=== PATIENT | female | born 1990 | race Caucasian/White ===

== ENCOUNTER 2016-12-21 12:36 | Emergency (ER) | payer OTHER | END 2016-12-21 13:02 | disposition left against medical advice (07) | LOC: MW.ED 12:36 ==

== ENCOUNTER 2017-05-09 14:11 | Emergency (ER) | payer BC, OTHER ==
--- NOTE | 2017-05-09 18:40 | EDM.PDOC ---
ED HPI GENERAL MEDICAL PROBLEM - General Chief Complaint: Lower Extremity Injury/Pain Stated Complaint: PAIN LT KNEE Time Seen by Provider: 05/09/17 18:35 Source of Information: Reports: Patient History Limitations: Reports: No Limitations - History of Present Illness INITIAL COMMENTS - FREE TEXT/NARRATIVE: HISTORY AND PHYSICAL: History of present illness: Patient is a 27-year-old female who presents to the emergency room today with complaints of left knee pain. States she was climbing down a ladder and her foot got caught between 2 rungs and twisted. This did not result in a fall, she did not hit her head. Since that time she has increased pain with weightbearing to the left knee. Denies any numbness or tingling to the affected extremity. Has no previous injury or surgeries to the affected extremity. Patient is currently using crutches from a friend, for comfort. Review of systems: As per history of present illness and below otherwise all systems reviewed and negative. Past medical history: As per history of present illness and as reviewed below otherwise noncontributory. Surgical history: As per history of present illness and as reviewed below otherwise noncontributory. Social history: No reported history of drug or alcohol abuse. Family history: As per history of present illness and as reviewed below otherwise noncontributory. Physical exam: HEENT: Atraumatic, normocephalic, pupils reactive, negative for conjunctival pallor or scleral icterus, mucous membranes moist, throat clear, neck supple, nontender, trachea midline. Lungs: Clear to auscultation, breath sounds equal bilaterally, chest nontender. Heart: S1S2, regular, negative for clicks, rubs, or JVD. Abdomen: Soft, nondistended, nontender. Negative for masses. Negative for costovertebral tenderness. Pelvis: Stable nontender. Genitourinary: Deferred. Rectal: Deferred. Extremities: describes sharp pain behind the left patella. There is no tenderness with palpation. Strong pedal pulses bilaterally. No foot drop. No knee instability. negative for cords or calf pain. Neurovascular unremarkable. skin: Intact, warm, dry. No overt lesions or rashes. Neuro: Awake, alert, oriented. Cranial nerves II through XII unremarkable. Cerebellum unremarkable. Motor and sensory unremarkable throughout. Exam nonfocal. Diagnostics: x-ray, lab Therapeutics: crutches, knee immobilizer Impression: knee effusion, left Plan: 1. Please take the Cataflam 1 tablet up to 3 times daily as needed for pain. This medication is an anti-inflammatory, so please do not take any additional ibuprofen or Aleve with this medication. You may take the Tramadol every 4 to 6 hours as needed for moderate to severe pain, I would like you to use this medication during the evening as needed. This medication may cause drowsiness so please be careful when using. Rest, ice, elevate the extremity several times throughout the day. 2. Use the crutches and knee immobilizer as discussed. 3. Please follow-up with the orthopedic provider as we discussed. Return to the ED as needed as discussed. Definitive disposition and diagnosis as appropriate pending reevaluation and review of above. Onset: Other (Yesterday) Duration: Day(s): Location: Reports: Lower Extremity, Left Left Knee Pain Score (Numeric/FACES): 9 - Related Data Allergies Allergy/AdvReac Type Severity Reaction Status Date / Time amoxicillin Allergy Anaphylactic Verified 05/09/17 16:42 Shock Dairy Products Allergy Anaphylactic Verified 05/09/17 16:42 Shock morphine Allergy Anaphylactic Verified 05/09/17 16:42 Shock Sulfa (Sulfonamide Allergy Anaphylactic Verified 05/09/17 16:43 Antibiotics) Shock Home Meds: Home Meds DULoxetine HCl [Duloxetine HCl] 90 mg PO DAILY 05/09/17 [History] Sertraline [Zoloft] 75 mg PO DAILY 05/09/17 [History] Past Medical History - Past Health History Medical/Surgical History: Denies Medical/Surgical History Respiratory History: Reports: Asthma Gastrointestinal History: Reports: Other (See Below) Other Gastrointestinal History: ulcers Musculoskeletal History: Reports: Other (See Below) Other Musculoskeletal History: L knee meniscus tear. R knee bone & tissue deterioration Psychiatric History: Reports: Depression Social & Family History - Family History Family Medical History: Noncontributory - Tobacco Use Smoking Status *Q: Current Every Day Smoker Years of Tobacco use: 5 Packs/Tins Daily: 1 - Recreational Drug Use Recreational Drug Use: No Review of Systems - Review of Systems Review Of Systems: ROS reveals no pertinent complaints other than HPI. ED EXAM, GENERAL - Physical Exam Exam: See Below (see dictation) Course - Vital Signs Last Recorded V/S: Last Vital Signs Temp 36.9 C 05/09/17 16:45 Pulse 90 05/09/17 16:45 Resp 18 05/09/17 16:45 BP 111/66 05/09/17 16:45 Pulse Ox 96 05/09/17 16:45 - Orders/Labs/Meds Orders: Active Orders 24 hr Category Date Time Status Knee 3V Lt [CR] Stat Exams 05/09/17 16:50 Taken DME for Discharge [COMM] Stat Oth 05/09/17 18:40 Ordered Labs: Laboratory Tests 05/09/17 Range/Units 16:50 Urine HCG, Qual NEGATIVE (NEGATIVE) Departure - Departure Time of Disposition: 18:39 Disposition: Home, Self-Care 01 Condition: Good Clinical Impression: Knee effusion, left - Discharge Information Referrals: PCP,None [Primary Care Provider] - Forms: ED Department Discharge Additional Instructions: My general discharge The following information is given to patients seen in the emergency department who are being discharged to home. This information is to outline your options for follow-up care. We provide all patients seen in our emergency department with a follow-up referral. The need for follow-up, as well as the timing and circumstances, are variable depending upon the specifics of your emergency department visit. If you don't have a primary care physician on staff, we will provide you with a referral. We always advise you to contact your personal physician following an emergency department visit to inform them of the circumstance of the visit and for follow-up with them and/or the need for any referrals to a consulting specialist. The emergency department will also refer you to a specialist when appropriate. This referral assures that you have the opportunity for follow-up care with a specialist. All of these measure are taken in an effort to provide you with optimal care, which includes your follow-up. Under all circumstances we always encourage you to contact your private physician who remains a resource for coordinating your care. When calling for follow-up care, please make the office aware that this follow-up is from your recent emergency room visit. If for any reason you are refused follow-up, please contact the [facility] Emergency Department at and asked to speak to the emergency department charge nurse. [facility] Professional Building [address] [place] [address], [address] [place] [address] 1. Please take the Cataflam 1 tablet up to 3 times daily as needed for pain. This medication is an anti-inflammatory, so please do not take any additional ibuprofen or Aleve with this medication. You may take the Tramadol every 4 to 6 hours as needed for moderate to severe pain, I would like you to use this medication during the evening as needed. This medication may cause drowsiness so please be careful when using. Rest, ice, elevate the extremity several times throughout the day. 2. Use the crutches and knee immobilizer as discussed. 3. Please follow-up with the orthopedic provider as we discussed. Return to the ED as needed as discussed. - My Orders Last 24 Hours: My Active Orders 05/09/17 18:40 DME for Discharge [COMM] Stat - Assessment/Plan Last 24 Hours: My Active Orders 05/09/17 18:40 DME for Discharge [COMM] Stat
--- NOTE | 2017-05-10 10:58 | CR ---
EXAM DATE: 05/09/17 PATIENT'S AGE: 27 Patient: MONALISA CHILD Facility: [place], [place] Site . Site : 1990 Study: XRay Knee [id number] 5:42:58 PM Ordering Physician: Doctor Blank Final Report: Indication: Fall Technique: Three views of the left knee Comparison: None available Findings: Bones: Alignment is normal. No fractures or bone lesions. Joint spaces: Preserved. Prominence of the patellofemoral compartment on the sunrise view. A small to moderate suprapatellar effusion. Soft tissues: Unremarkable. Impression: No acute fracture or dislocation. A suprapatellar effusion. Dictated by Omega Guerrero MD @ 05/09/2017 6:17:21 PM Dictated by: Omega Guerrero MD @ 05/09/2017 18:17:27 (Electronic Signature) Report Signed by Proxy. [email or web address]
== END 2017-05-09 19:15 | disposition home or self-care (01) ==
LOC: MW.ED 14:11
DX: M25.462 Effusion, left knee (principal); J45.909 Unspecified asthma, uncomplicated; F32.9 Major depressive disorder, single episode, unspecified; F17.210 Nicotine dependence, cigarettes, uncomplicated; Z79.899 Other long term (current) drug therapy; Z88.5 Allergy status to narcotic agent; Z88.2 Allergy status to sulfonamides; Z88.1 Allergy status to other antibiotic agents; Z91.011 Allergy to milk products
CPT/HCPCS: 73562-26-LT; 73562-LT; 81025; 99283; 99284

== ENCOUNTER 2017-09-05 02:45 | Emergency (ER) | payer OTHER, BC ==
[2017-09-05] MEDS ORDERED: LORazepam 2 MG/ML MDV IVPUSH ONE (02:50)
[2017-09-05] MEDS ORDERED: Ketorolac 30 MG/ML SDV IVPUSH ONE (02:50)
[2017-09-05] MEDS ORDERED: Sodium Chloride 0.9% 1,000 ML IV ONE (02:50)
--- NOTE | 2017-09-05 02:52 | EDM.PDOC ---
ED HPI GENERAL MEDICAL PROBLEM - General Stated Complaint: ABDOMINAL PAIN Time Seen by Provider: 09/05/17 02:52 Source of Information: Reports: Patient - History of Present Illness INITIAL COMMENTS - FREE TEXT/NARRATIVE: HISTORY AND PHYSICAL: History of present illness: [Patient presents via EMS She was nearly asleep tonight she began to feel her heart racing which prompted her to get up she then vomited shortly after 1, she had complained of some abdominal pain to EMS stating she is allergic to morphine and she requested Dilaudid fairly aggressively. In speaking here in the emergency room she has not mentioned abdominal pain nor has she vomited. EMS did provide 8 mg Zofran IV . On arrival she does not appear to be in any acute distress she is able to speak clearly and provide the history she is nontender on abdominal exam No apparent fever nausea vomiting at current. no chills sweats chest pain shortness breath headache dizziness palpitation no bowel or urine symptoms Patient does have some tenderness in the right upper quadrant, she is noted to have been or area was prior to going to bed for supper which may be a mild biliary colic Review of systems: As per history of present illness and below otherwise all systems reviewed and negative. Past medical history: As per history of present illness and as reviewed below otherwise noncontributory. Surgical history: As per history of present illness and as reviewed below otherwise noncontributory. Social history: No reported history of drug or alcohol abuse. Family history: As per history of present illness and as reviewed below otherwise noncontributory. Physical exam: HEENT: Atraumatic, normocephalic, pupils reactive, negative for conjunctival pallor or scleral icterus, mucous membranes moist, throat clear, neck supple, nontender, trachea midline. Lungs: Clear to auscultation, breath sounds equal bilaterally, chest nontender. Heart: S1S2, regular, negative for clicks, rubs, or JVD. Abdomen: Soft, nondistended, nontender. Negative for masses or hepatosplenomegaly. Negative for costovertebral tenderness. Pelvis: Stable nontender. Genitourinary: Deferred. Rectal: Deferred. Extremities: Atraumatic, negative for cords or calf pain. Neurovascular unremarkable. Neuro: Awake, alert, oriented. Cranial nerves II through XII unremarkable. Cerebellum unremarkable. Motor and sensory unremarkable throughout. Exam nonfocal. Diagnostics: [CBC CMP UA hCG amylase lipase drug screen cardiac enzymes Ultrasound right upper quadrant ] Therapeutics: [1 L normal saline bolus Zofran 8 mg IV provided via EMS Ativan 1 mg IV Toradol 30 mg IV ] Impression: [Anxiety about health Abdominal pain Nausea vomiting prior to EMS arrival] Definitive disposition and diagnosis as appropriate pending reevaluation and review of above. abdominal Pain Score (Numeric/FACES): 10 - Related Data Allergies Allergy/AdvReac Type Severity Reaction Status Date / Time amoxicillin Allergy Anaphylactic Verified 09/05/17 02:59 Shock Dairy Products Allergy Anaphylactic Verified 09/05/17 02:59 Shock morphine Allergy Anaphylactic Verified 09/05/17 02:59 Shock Sulfa (Sulfonamide Allergy Anaphylactic Verified 09/05/17 02:59 Antibiotics) Shock Home Meds: Home Meds DULoxetine HCl [Duloxetine HCl] 90 mg PO DAILY 05/09/17 [History] Sertraline [Zoloft] 0 mg PO DAILY 05/09/17 [History] Prazosin HCl [Prazosin] 6 mg PO BEDTIME 09/05/17 [History] traMADol HCl [Ultram] 50 mg PO ASDIRECTED PRN 09/05/17 [History] Past Medical History - Past Health History Medical/Surgical History: Denies Medical/Surgical History Respiratory History: Reports: Asthma Gastrointestinal History: Reports: Other (See Below) Other Gastrointestinal History: ulcers Musculoskeletal History: Reports: Other (See Below) Other Musculoskeletal History: L knee meniscus tear. R knee bone & tissue deterioration Psychiatric History: Reports: Depression Social & Family History - Family History Family Medical History: Noncontributory - Tobacco Use Smoking Status *Q: Current Every Day Smoker Years of Tobacco use: 5 Packs/Tins Daily: 1 - Recreational Drug Use Recreational Drug Use: No ED ROS GENERAL - Review of Systems Review Of Systems: ROS reveals no pertinent complaints other than HPI. ED EXAM, GENERAL - Physical Exam Exam: See Below Course - Vital Signs Last Recorded V/S: Last Vital Signs Temp 98.4 F 09/05/17 04:50 Pulse 88 09/05/17 04:50 Resp 18 09/05/17 04:50 BP 98/56 L 09/05/17 04:50 Pulse Ox 97 09/05/17 04:50 - Orders/Labs/Meds Orders: Active Orders 24 hr Category Date Time Status EKG Documentation Completion [RC] STAT Care 09/05/17 02:59 Active Abdomen Ltd [US] Stat Exams 09/05/17 03:54 Taken Labs: Laboratory Tests 09/05/17 09/05/17 09/05/17 Range/Units 03:10 03:10 03:10 WBC 10.79 (4.0-11.0) K/uL RBC 4.18 L (4.30-5.90) M/uL Hgb 13.2 (12.0-16.0) g/dL Hct 38.1 (36.0-46.0) % MCV 91.1 (80.0-98.0) fL MCH 31.6 (27.0-32.0) pg MCHC 34.6 (31.0-37.0) g/dL RDW Std Deviation 39.2 (28.0-62.0) fl RDW Coeff of Ike 12 (11.0-15.0) % Plt Count 223 (150-400) K/uL MPV 9.60 (7.40-12.00) fL Neut % (Auto) 68.5 (48.0-80.0) % Lymph % (Auto) 23.0 (16.0-40.0) % [place] % (Auto) 6.3 (0.0-15.0) % Eos % (Auto) 1.9 (0.0-7.0) % Baso % (Auto) 0.3 (0.0-1.5) % Neut # (Auto) 7.4 H (1.4-5.7) K/uL Lymph # (Auto) 2.5 H (0.6-2.4) K/uL [place] # (Auto) 0.7 (0.0-0.8) K/uL Eos # (Auto) 0.2 (0.0-0.7) K/uL Baso # (Auto) 0.0 (0.0-0.1) K/uL Nucleated RBC % 0.0 /100WBC Nucleated RBCs # 0 K/uL Sodium 138 (136-146) mmol/L Potassium 3.9 (3.5-5.1) mmol/L Chloride 104 (98-110) mmol/L Carbon Dioxide 23 (21-31) mmol/L BUN 11 (6.0-23.0) mg/dL Creatinine 0.8 (0.6-1.5) mg/dL Est Cr Clr Drug Dosing TNP Estimated GFR (MDRD) > 60.0 ml/min Glucose 158 H (60-110) mg/dL Calcium 9.0 (8.8-10.8) mg/dL Total Bilirubin 0.4 (0.1-1.5) mg/dL AST 17 (5-40) IU/L ALT 13 (8-54) IU/L Alkaline Phosphatase 37 L (40-150) Creatine Kinase (9-236) IU/L CK-MB (CK-2) (0-6.6) ng/ml Troponin I < 0.10 (0.0-0.29) NG/ML C-Reactive Protein 0.13 (0.0-0.5) mg/dL Total Protein 6.7 (6.0-8.0) g/dL Albumin 3.9 (3.5-5.0) g/dL Globulin 2.8 (2.0-3.5) g/dL Albumin/Globulin Ratio 1.4 (1.3-2.8) Amylase 51 (10-90) U/L Lipase 12 (7-80) U/L Urine Color Urine Appearance Urine pH (5.0-8.0) Ur Specific [place] (1.001-1.035) Urine Protein (NEGATIVE) mg/dL Urine Glucose (UA) (NEGATIVE) mg/dL Urine Ketones (NEGATIVE) mg/dL Urine Occult Blood (NEGATIVE) Urine Nitrite (NEGATIVE) Urine Bilirubin (NEGATIVE) Urine Urobilinogen (<2.0) EU/dL Ur Leukocyte Esterase (NEGATIVE) Urine RBC (0-2/HPF) Urine WBC (0-5/HPF) Ur Epithelial Cells (NONE-FEW) Urine Bacteria (NEGATIVE) Urine HCG, Qual (NEGATIVE) Urine Opiates Screen (NEGATIVE) Ur Oxycodone Screen (NEGATIVE) Urine Methadone Screen (NEGATIVE) Ur Barbiturates Screen (NEGATIVE) Ur Phencyclidine Scrn (NEGATIVE) Ur Amphetamine Screen (NEGATIVE) U Methamphetamines Scrn (NEGATIVE) U Benzodiazepines Scrn (NEGATIVE) U Cocaine Metab Screen (NEGATIVE) U Marijuana (THC) Screen (NEGATIVE) 09/05/17 09/05/17 09/05/17 Range/Units 03:10 03:30 03:30 WBC (4.0-11.0) K/uL RBC (4.30-5.90) M/uL Hgb (12.0-16.0) g/dL Hct (36.0-46.0) % MCV (80.0-98.0) fL MCH (27.0-32.0) pg MCHC (31.0-37.0) g/dL RDW Std Deviation (28.0-62.0) fl RDW Coeff of Ike (11.0-15.0) % Plt Count (150-400) K/uL MPV (7.40-12.00) fL Neut % (Auto) (48.0-80.0) % Lymph % (Auto) (16.0-40.0) % [place] % (Auto) (0.0-15.0) % Eos % (Auto) (0.0-7.0) % Baso % (Auto) (0.0-1.5) % Neut # (Auto) (1.4-5.7) K/uL Lymph # (Auto) (0.6-2.4) K/uL [place] # (Auto) (0.0-0.8) K/uL Eos # (Auto) (0.0-0.7) K/uL Baso # (Auto) (0.0-0.1) K/uL Nucleated RBC % /100WBC Nucleated RBCs # K/uL Sodium (136-146) mmol/L Potassium (3.5-5.1) mmol/L Chloride (98-110) mmol/L Carbon Dioxide (21-31) mmol/L BUN (6.0-23.0) mg/dL Creatinine (0.6-1.5) mg/dL Est Cr Clr Drug Dosing Estimated GFR (MDRD) ml/min Glucose (60-110) mg/dL Calcium (8.8-10.8) mg/dL Total Bilirubin (0.1-1.5) mg/dL AST (5-40) IU/L ALT (8-54) IU/L Alkaline Phosphatase (40-150) Creatine Kinase 51 (9-236) IU/L CK-MB (CK-2) 1.0 (0-6.6) ng/ml Troponin I (0.0-0.29) NG/ML C-Reactive Protein (0.0-0.5) mg/dL Total Protein (6.0-8.0) g/dL Albumin (3.5-5.0) g/dL Globulin (2.0-3.5) g/dL Albumin/Globulin Ratio (1.3-2.8) Amylase (10-90) U/L Lipase (7-80) U/L Urine Color Urine Appearance Urine pH (5.0-8.0) Ur Specific [place] (1.001-1.035) Urine Protein (NEGATIVE) mg/dL Urine Glucose (UA) (NEGATIVE) mg/dL Urine Ketones (NEGATIVE) mg/dL Urine Occult Blood (NEGATIVE) Urine Nitrite (NEGATIVE) Urine Bilirubin (NEGATIVE) Urine Urobilinogen (<2.0) EU/dL Ur Leukocyte Esterase (NEGATIVE) Urine RBC (0-2/HPF) Urine WBC (0-5/HPF) Ur Epithelial Cells (NONE-FEW) Urine Bacteria (NEGATIVE) Urine HCG, Qual NEGATIVE (NEGATIVE) Urine Opiates Screen NEGATIVE (NEGATIVE) Ur Oxycodone Screen NEGATIVE (NEGATIVE) Urine Methadone Screen NEGATIVE (NEGATIVE) Ur Barbiturates Screen NEGATIVE (NEGATIVE) Ur Phencyclidine Scrn NEGATIVE (NEGATIVE) Ur Amphetamine Screen NEGATIVE (NEGATIVE) U Methamphetamines Scrn NEGATIVE (NEGATIVE) U Benzodiazepines Scrn NEGATIVE (NEGATIVE) U Cocaine Metab Screen NEGATIVE (NEGATIVE) U Marijuana (THC) Screen NEGATIVE (NEGATIVE) 09/05/17 Range/Units 03:30 WBC (4.0-11.0) K/uL RBC (4.30-5.90) M/uL Hgb (12.0-16.0) g/dL Hct (36.0-46.0) % MCV (80.0-98.0) fL MCH (27.0-32.0) pg MCHC (31.0-37.0) g/dL RDW Std Deviation (28.0-62.0) fl RDW Coeff of Ike (11.0-15.0) % Plt Count (150-400) K/uL MPV (7.40-12.00) fL Neut % (Auto) (48.0-80.0) % Lymph % (Auto) (16.0-40.0) % [place] % (Auto) (0.0-15.0) % Eos % (Auto) (0.0-7.0) % Baso % (Auto) (0.0-1.5) % Neut # (Auto) (1.4-5.7) K/uL Lymph # (Auto) (0.6-2.4) K/uL [place] # (Auto) (0.0-0.8) K/uL Eos # (Auto) (0.0-0.7) K/uL Baso # (Auto) (0.0-0.1) K/uL Nucleated RBC % /100WBC Nucleated RBCs # K/uL Sodium (136-146) mmol/L Potassium (3.5-5.1) mmol/L Chloride (98-110) mmol/L Carbon Dioxide (21-31) mmol/L BUN (6.0-23.0) mg/dL Creatinine (0.6-1.5) mg/dL Est Cr Clr Drug Dosing Estimated GFR (MDRD) ml/min Glucose (60-110) mg/dL Calcium (8.8-10.8) mg/dL Total Bilirubin (0.1-1.5) mg/dL AST (5-40) IU/L ALT (8-54) IU/L Alkaline Phosphatase (40-150) Creatine Kinase (9-236) IU/L CK-MB (CK-2) (0-6.6) ng/ml Troponin I (0.0-0.29) NG/ML C-Reactive Protein (0.0-0.5) mg/dL Total Protein (6.0-8.0) g/dL Albumin (3.5-5.0) g/dL Globulin (2.0-3.5) g/dL Albumin/Globulin Ratio (1.3-2.8) Amylase (10-90) U/L Lipase (7-80) U/L Urine Color DARK YELLOW Urine Appearance SLT CLOUDY Urine pH 6.0 (5.0-8.0) Ur Specific [place] >= 1.030 (1.001-1.035) Urine Protein TRACE (NEGATIVE) mg/dL Urine Glucose (UA) NEGATIVE (NEGATIVE) mg/dL Urine Ketones NEGATIVE (NEGATIVE) mg/dL Urine Occult Blood LARGE H (NEGATIVE) Urine Nitrite NEGATIVE (NEGATIVE) Urine Bilirubin NEGATIVE (NEGATIVE) Urine Urobilinogen 0.2 (<2.0) EU/dL Ur Leukocyte Esterase NEGATIVE (NEGATIVE) Urine RBC 60-65 (0-2/HPF) Urine WBC 1-2 (0-5/HPF) Ur Epithelial Cells FEW (NONE-FEW) Urine Bacteria FEW (NEGATIVE) Urine HCG, Qual (NEGATIVE) Urine Opiates Screen (NEGATIVE) Ur Oxycodone Screen (NEGATIVE) Urine Methadone Screen (NEGATIVE) Ur Barbiturates Screen (NEGATIVE) Ur Phencyclidine Scrn (NEGATIVE) Ur Amphetamine Screen (NEGATIVE) U Methamphetamines Scrn (NEGATIVE) U Benzodiazepines Scrn (NEGATIVE) U Cocaine Metab Screen (NEGATIVE) U Marijuana (THC) Screen (NEGATIVE) Meds: Medications Discontinued Medications Generic Name Dose Route Start Last Admin Trade Name Freq PRN Reason Stop Dose Admin Sodium Chloride 1,000 mls @ 999 mls/hr 09/05/17 02:50 09/05/17 03:09 Normal Saline IV 09/05/17 03:50 999 mls/hr STAT ONE Administration Ketorolac Tromethamine 30 mg 09/05/17 02:50 09/05/17 03:21 Toradol IVPUSH 09/05/17 02:51 30 mg ONETIME ONE Administration Lorazepam 1 mg 09/05/17 02:50 09/05/17 03:39 Ativan IVPUSH 09/05/17 02:51 1 mg ONETIME ONE Administration Pantoprazole Sodium 80 mg 09/05/17 02:59 09/05/17 03:16 Protonix Iv IVPUSH 09/05/17 03:00 80 mg .BOLUS ONE Administration Departure - Departure Time of Disposition: 05:01 Disposition: Home, Self-Care 01 Condition: Good Clinical Impression: Abdominal pain, Vomiting - Discharge Information Referrals: PCP,None [Primary Care Provider] - Additional Instructions: [employer] diet as discussed Return if symptoms persist or worsen Follow-up with primary care and consider HIDA scan testing if symptoms persist or worsen [facility] [address] [place] [id number] The following information is given to patients seen in the emergency department who are being discharged to home. This information is to outline your options for follow-up care. We provide all patients seen in our emergency department with a follow-up referral. The need for follow-up, as well as the timing and circumstances, are variable depending upon the specifics of your emergency department visit. If you don't have a primary care physician on staff, we will provide you with a referral. We always advise you to contact your personal physician following an emergency department visit to inform them of the circumstance of the visit and for follow-up with them and/or the need for any referrals to a consulting specialist. The emergency department will also refer you to a specialist when appropriate. This referral assures that you have the opportunity for follow-up care with a specialist. All of these measure are taken in an effort to provide you with optimal care, which includes your follow-up. Under all circumstances we always encourage you to contact your private physician who remains a resource for coordinating your care. When calling for follow-up care, please make the office aware that this follow-up is from your recent emergency room visit. If for any reason you are refused follow-up, please contact the [facility] emergency department at and asked to speak to the emergency department charge nurse. - My Orders Last 24 Hours: My Active Orders 09/05/17 02:59 EKG Documentation Completion [RC] STAT 09/05/17 03:54 Abdomen Ltd [US] Stat - Assessment/Plan Last 24 Hours: My Active Orders 09/05/17 02:59 EKG Documentation Completion [RC] STAT 09/05/17 03:54 Abdomen Ltd [US] Stat
[2017-09-05] MEDS ORDERED: Pantoprazole 40 MG Vial IVPUSH ONE (02:59)
[2017-09-05 03:34] LABS: CHLORIDE,CL 104 mmol/L (98-110); SODIUM,NA 138 mmol/L (136-146)
--- NOTE | 2017-09-05 13:00 | US ---
EXAM DATE: 09/05/17 PATIENT'S AGE: 27 Patient: MONALISA CHILD Facility: [place], [place] Site . Site : 1990 Study: US Abdomen [id number] 4:32:57 AM Ordering Physician: Kael Ruffin Final Report: INDICATION: Abdominal pain TECHNIQUE: Ultrasound abdomen limited. Sonographic images of the right upper quadrant were obtained using escobar-scale and color Doppler images. COMPARISON: None available FINDINGS: Liver: Normal in size and echotexture. No masses. No intrahepatic biliary dilatation. Gallbladder: No stones or sludge. Normal wall thickness. No pericholecystic fluid. Common bile duct: 2 mm. Pancreas: Normal. Right kidney: 11.2 cm. Normal echotexture and cortex. No masses, stones, or hydronephrosis. IMPRESSION: Unremarkable right upper quadrant ultrasound. Dictated by Omega Guerrero MD @ 09/05/2017 4:37:08 AM Dictated by: Omega Guerrero MD @ 09/05/2017 04:37:13 (Electronic Signature) Report Signed by Proxy. [facility]
== END 2017-09-05 05:10 | disposition home or self-care (01) ==
LOC: MW.ED 02:45
DX: R10.9 Unspecified abdominal pain (principal); R11.2 Nausea with vomiting, unspecified; F17.210 Nicotine dependence, cigarettes, uncomplicated; Z88.1 Allergy status to other antibiotic agents; Z91.011 Allergy to milk products; Z88.5 Allergy status to narcotic agent; Z88.2 Allergy status to sulfonamides; Z79.899 Other long term (current) drug therapy
CPT/HCPCS: 36415; 76705; 80053; 80305; 81001; 81025; 82150; 82550; 82553; 83690; 84484; 85025; 86140; 93005; 96361; 96374; 96375; 99285; C9113; J1885; J2060; J7040; 99283

== ENCOUNTER 2017-09-13 09:46 | Day surgery (SDC) | payer OTHER ==
[~2017-09-13 09:46] MED LIST: Acetaminophen/HYDROcodone 325-10 MG Tab PO PRN; Clindamycin Phosphate in D5W 600 MG in Premix Bag 50 BAG IV SCH; Ketorolac 10 MG Tab PO PRN; Lactated Ringers 1,000 ML IV SCH; Lidocaine 2% 5 ML SDV ONE; Midazolam 1 MG/ML 2 ML SDV ONE; Propofol 200 MG/20 ML SDV ONE; fentaNYL 100 MCG/2 ML SDV ONE; fentaNYL 250 MCG/5 ML SDV ONE
[2017-09-13] MEDS ORDERED: HYDROmorphone 2 MG/ML SDV ONE (09:49)
[2017-09-13] MEDS ORDERED: Sodium Chloride 0.9% 10 ML Syringe FLUSH PRN (09:53)
[2017-09-13] MEDS ORDERED: Midazolam 1 MG/ML 2 ML SDV IVPUSH PRN (09:53)
[2017-09-13] MEDS ORDERED: Sodium Chloride 0.9% 2.5 ML Syringe FLUSH PRN (09:53)
--- NOTE | 2017-09-13 09:53 | PCM.PREANE ---
Preanesthetic Assessment - Anesthesia/Transfusion/Family Hx Anesthesia History: Prior Anesthesia Without Reaction Other Type of Anesthesia Reaction Comment: "my mother woke up during surgery" Transfusion History: No Prior Transfusion(s) - Review of Systems General: No Symptoms Pulmonary: No Symptoms Cardiovascular: No Symptoms Gastrointestinal: No Symptoms Neurological: No Symptoms Other: Reports: None - Physical Assessment NPO Status Date: 09/12/17 NPO Status Time: 23:00 Height: 5 ft 2 in Weight: 65.771 kg ASA Class: 2 Mental Status: Alert & Oriented x3 Airway Class: Mallampati = 1 Dentition: Reports: Normal Dentition Thyro-Mental Finger Breadths: 3 Mouth Opening Finger Breadths: 3 ROM/Head Extension: Full Lungs: Clear to Auscultation, Normal Respiratory Effort Cardiovascular: Regular Rate, Regular Rhythm - Allergies Allergies/Adverse Reactions: Allergies Allergy/AdvReac Type Severity Reaction Status Date / Time amoxicillin Allergy Anaphylactic Verified 09/08/17 14:45 Shock Dairy Products Allergy Anaphylactic Verified 09/08/17 14:45 Shock morphine Allergy Anaphylactic Verified 09/08/17 14:45 Shock Sulfa (Sulfonamide Allergy Anaphylactic Verified 09/08/17 14:45 Antibiotics) Shock - Anesthesia Plan Free Text/Narrative:: Severe anxiety in Pre-OP. Pt noted she is very anxious this AM. - Acknowledgements Anesthesia Type Planned: General Anesthesia (LMA) Pt an Appropriate Candidate for the Planned Anesthesia: Yes Alternatives and Risks of Anesthesia Discussed w Pt/Guardian: Yes Pt/Guardian Understands and Agrees with Anesthesia Plan: Yes PreAnesthesia Questionnaire - Past Health History Medical/Surgical History: Denies Medical/Surgical History Other HEENT History: wears glasses/contacts Cardiovascular History: Reports: [place], Other (See Below) Other Cardiovascular History: states "was in the ER 2 days ago (09/05/17) with a heart attack" "they did a workup and I was cleared" Respiratory History: Reports: Asthma Gastrointestinal History: Reports: GERD, Other (See Below) Other Gastrointestinal History: ulcers, states has gallstones Genitourinary History: Reports: None [employer] History: Reports: None Musculoskeletal History: Reports: Other (See Below) Other Musculoskeletal History: L knee meniscus tear. R knee bone & tissue deterioration Neurological History: Reports: Migraines Psychiatric History: Reports: Anxiety, Depression, PTSD Endocrine/Metabolic History: Reports: None Hematologic History: Reports: None Immunologic History: Reports: None Oncologic (Cancer) History: Reports: None Dermatologic History: Reports: None - Infectious Disease History Infectious Disease History: Reports: None - Past Surgical History Head Surgeries/Procedures: Reports: None HEENT Surgical History: Reports: Adenoidectomy, Tonsillectomy Female Surgical History: Reports: None Musculoskeletal Surgical History: Reports: Arthroscopic Knee, Other (See Below) Other Musculoskeletal Surgeries/Procedures:: R knee surgery, 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 - SUBSTANCE USE Smoking Status *Q: Current Every Day Smoker Tobacco Use Within Last Twelve Months: Smokeless Tobacco Recreational Drug Use History: No - HOME MEDS Home Medications: Home Meds DULoxetine HCl [Duloxetine HCl] 90 mg PO DAILY 05/09/17 [History] Sertraline [Zoloft] 50 mg PO DAILY 05/09/17 [History] Albuterol [IJD: Albuterol HFA] 1 - 2 puff INH ASDIRECTED PRN 09/08/17 [History] Ibuprofen 1 tab PO ASDIRECTED PRN 09/08/17 [History] Ranitidine HCl [Zantac] 1 tab PO DAILY 09/08/17 [History] SUMAtriptan [Imitrex] 1 tab PO ASDIRECTED PRN 09/08/17 [History] - CURRENT (IN HOUSE) MEDS Current Meds: Current Medications Hydrocodone Bitart/Acetaminophen ([place] 325-10 Mg) 1 - 2 tab PO Q4H PRN PRN Reason: Pain Clindamycin Phosphate 600 mg/ (Premix) 50 mls @ 100 mls/hr IV ONCALL [facility] Lactated Ringer's (Ringers, Lactated) 1,000 mls @ 100 mls/hr IV ASDIRECTED [facility] Ketorolac Tromethamine (Toradol) 10 mg PO Q6H PRN PRN Reason: Pain Stop: 09/18/17 08:01 Discontinued Medications Fentanyl (Sublimaze) Confirm Administered Dose 100 mcg .ROUTE .STK-MED ONE Stop: 09/13/17 09:32 Fentanyl (Sublimaze) Confirm Administered Dose 250 mcg .ROUTE .STK-MED ONE Stop: 09/13/17 09:32 Lidocaine (Xylocaine-Mpf 2%) Confirm Administered Dose 10 ml .ROUTE .STK-MED ONE Stop: 09/13/17 09:32 Midazolam HCl (Versed 1 Mg/Ml) Confirm Administered Dose 2 mg .ROUTE .STK-MED ONE Stop: 09/13/17 09:32 Propofol (Diprivan 20 Ml) Confirm Administered Dose 400 mg .ROUTE .STK-MED ONE Stop: 09/13/17 09:32
[2017-09-13] MEDS ORDERED: Bupivacaine 0.5% 10 ML SDV ONE (10:24)
[2017-09-13] MEDS ORDERED: Famotidine 20 MG/2 ML SDV IVPUSH ONE (10:27)
[2017-09-13] MEDS ORDERED: Neostigmine Methylsulfate 1 MG/ML 5 ML Syringe ONE (11:58)
[2017-09-13] MEDS ORDERED: Glycopyrrolate 0.2 MG/ML SDV ONE (11:58)
[2017-09-13] MEDS ORDERED: Rocuronium 10 MG/ML 10 ML Syringe ONE (12:00)
[2017-09-13] MEDS ORDERED: HYDROmorphone 2 MG/ML Syringe IVPUSH ONE (12:03)
[2017-09-13] MEDS ORDERED: Propofol 200 MG/20 ML SDV ONE (12:43)
[2017-09-13] MEDS ORDERED: fentaNYL 100 MCG/2 ML SDV ONE (12:50)
--- NOTE | 2017-09-13 13:45 | PCM.OPNOTE ---
- General Post-Op/Procedure Note Date of Surgery/Procedure: 09/13/17 Operative Procedure(s): L knee scope, diagnostic with arthroscopically aided ACL reconstruction Post-Op Diagnosis: L knee ACL tear Anesthesia Technique: General ET Tube Primary Surgeon: Susu Thibodeaux Glass Frame Fitter: Arianne Paul Glass Frame Fitter: Evgeny Chahal in mLs: 10 Condition: Good Free Text/Narrative:: tt=90 min #[id number]
[2017-09-13] MEDS: fentaNYL 100 MCG/2 ML SDV IVPUSH PRN ×2 (14:32→15:19)
--- NOTE | 2017-09-13 15:18 | PCM.POSTAN ---
POST ANESTHESIA ASSESSMENT - MENTAL STATUS Mental Status: Alert, Oriented - RESPIRATORY Respiratory Status: Respiratory Rate WNL, Airway Patent, O2 Saturation Stable - CARDIOVASCULAR CV Status: Pulse Rate WNL, Blood Pressure Stable - GASTROINTESTINAL GI Status: No Symptoms - POST OP HYDRATION Hydration Status: Adequate & Stable
--- NOTE | 2017-09-13 17:04 | PCM48HPAN ---
Post Anesthesia Note - EVALUATION WITHIN 48HRS OF ANESTHETIC Vital Signs in Normal Range: Yes Patient Participated in Evaluation: Yes Respiratory Function Stable: Yes Airway Patent: Yes Cardiovascular Function Stable: Yes Hydration Status Stable: Yes Pain Control Satisfactory: Yes Nausea and Vomiting Control Satisfactory: Yes Mental Status Recovered: Yes Resp Rate: 14
--- NOTE | 2017-09-13 19:21 | OR ---
SURGEON: Susu Thibodeaux MD DATE OF PROCEDURE: 09/13/2017 PREOPERATIVE DIAGNOSIS: Left knee anterior cruciate ligament tear. POSTOPERATIVE DIAGNOSIS: Left knee anterior cruciate ligament tear. PROCEDURE: Left knee arthroscopy, diagnostic with arthroscopically aided anterior cruciate ligament reconstruction using allograft. ASSISTANTS: Arianne Paul PA-C and Evgeny Chahal MD, PGY3. ANESTHESIA: General. ESTIMATED BLOOD LOSS: 10 mL. TOURNIQUET TIME: 90 minutes. COMPLICATIONS: None. DVT PROPHYLAXIS: PAS boot to the nonoperative leg. IMPLANTS USED: Biomet AperFix femoral and tibial component with soft tissue allograft. BRIEF HISTORY: Otilia is a 27-year-old female, who injured her left knee. She continued to have complaints of continued instability. An MRI did confirm a tear of the ACL. Due to her lack of response to conservative treatment, I did recommend surgical intervention. The risks and goals of procedure were discussed with the patient and were documented preoperatively. She agreed to proceed. DESCRIPTION OF PROCEDURE: The patient was properly identified and brought to the operating room. She was transferred from the OR cart and placed on the operating table in supine position. General anesthesia was administered. After adequate anesthesia was obtained, a well-padded tourniquet was applied to the left lower extremity. The left lower extremity was then prepped in standard fashion using ChloraPrep solution. It was then sterilely draped. A time-out was performed to ensure correct site and procedure. Preoperative antibiotics were given. The surgical site had been marked preoperatively. An Esmarch was used to exsanguinate the left lower extremity and the tourniquet was inflated to 250 mmHg. A lateral portal arthrotomy was established. Blunt trocar and cannula were introduced into the suprapatellar pouch. Camera, inflow, and outflow were assembled. No significant synovitis was noted. The patellofemoral joint was visualized. Joint surfaces appeared pristine. The patella appeared to track centrally. I then extended down the lateral medial gutters. No loose bodies were identified. I then entered the medial compartment. A medial portal arthrotomy was established. A blunt probe was inserted. The meniscus was extensively probed. No tearing was noted. No significant degenerative changes were noted along the joint surfaces. I then entered the notch. The ACL was visualized. The attachment to the tibia remained, however, there was no attachment to the lateral femoral condyle. PCL was probed and found to be stable. I then entered the lateral compartment. Again, the lateral compartment joint surfaces appeared pristine. The meniscus was probed and found to be stable. I then re-entered the notch. Using a combination of electrocautery and the shaver, the soft tissue attachment of the ACL to the tibia was removed. The lateral femoral condylar wall was cleared of soft tissue. A 5.0 mm jorge was used to perform a small notchplasty to aid with visualization posteriorly. I did use a large curette to clear the soft tissue off the posterior aspect of the lateral femoral condylar to confirm that we had adequate posterior visualization. The femoral cutting guide was then inserted. It was placed into position. A small incision was made over the lateral aspect of the distal thigh for placement of the cannula. The switch cutter drill was then assembled. It was drilled into the joint. The position was felt to be appropriate. We then retro-drilled approximately 25 to 27 mm. Position of the tunnel was nearly anatomic. Instruments were then removed and the lateral portal was closed. We then turned our attention to the tibia. A tibial guide was placed. A small incision was made over the anterior aspect of the proximal tibia. The subcutaneous tissues were dissected down. The periosteum was cleared. A guide pin was then placed. Once the guide pin was in acceptable position, the guide pin was overdrilled with a 10 mm reamer. It should be noted that the allograft was prepared on the back table in the usual manner prior to start of the procedure. The graft was then placed through the medial tunnel into the lateral femoral condyle. The AperFix fixation device was used. I did pull the ends of the graft suture through the tibial tunnel to aid in passing the graft through the tibial tunnel at the completion. The AperFix fixation device was then malleted into position into the femoral condyle. The graft was passed until the predetermined length was visualized. The suture ends and graft ends were then passed through the tibial tunnel without difficulty. We were able to visualize the graft, and positioning appeared appropriate. Tension was applied to the graft ends, and the AperFix tibial fixation device was placed. The knee was brought into full extension with a slight hyperextension force. The graft was then visualized intra-articularly. It was noted that one of the graft ends did not have adequate tensioning. I elected to proceed with removal of the tibial AperFix fixation in an attempt to improve the tensioning. The AperFix tibial components were then removed. The graft was again inspected. It was noted that a portion of one limb of the four had some soft tissue shearing as it had passed into the tibial tunnel. This portion of the graft was removed. The remainder of the graft was tight within the intra-articular portion. There was a majority of the graft remaining, even after removing the sheared portion of the graft. The knee was taken through a range of motion with tension applied, and no pistoning of the graft was noted. There did not appear to be any bony or soft tissue impingement. The AperFix fixation device was again placed between the graft ends, and the screw was placed without difficulty. Again, this was placed with the knee in full extension. An intra-articular graft was again visualized. It was probed and found to be tight. An Ghislaine's test was performed, which did not show any significant anterior translation. The tourniquet was then deflated. No excess bleeding was noted. The periosteum was closed with 2-0 Vicryl over the tibial tunnel and the subcutaneous tissues were closed with 2-0 Vicryl. The skin was closed with a running 4-0 Monocryl suture. Steri-Strips and Benzoin were applied. A 3-0 nylon was used to close remainder of the portal sites. Marcaine 0.5% was administered to the incision site at the completion. Xeroform gauze was placed over the wounds and a bulky dressing was applied. She was placed into a Vermillion brace with the knee locked in full extension. She was awakened from her anesthetic and transferred back to the operating room cart. She was brought to recovery room in stable condition. All needle and sponge counts were correct. KAMINI / JAXON /[id number] SHIREEN
== END 2017-09-13 17:15 | disposition home or self-care (01) ==
LOC: MW.SDS 09:46
PROVIDERS: ATTEND Orthopaedic Surgery
DX: S83.512A Sprain of anterior cruciate ligament of left knee, initial encounter (principal); F41.9 Anxiety disorder, unspecified; J45.909 Unspecified asthma, uncomplicated; F32.9 Major depressive disorder, single episode, unspecified; Z79.899 Other long term (current) drug therapy; Z88.1 Allergy status to other antibiotic agents; Z88.2 Allergy status to sulfonamides; Z88.8 Allergy status to other drugs, medicaments and biological substances; X58.XXXA Exposure to other specified factors, initial encounter; Z91.011 Allergy to milk products
CPT/HCPCS: 29888; 81025; A9270; J1170; J2250; J3010; J7120; 01400; 88304; C1762; C1776; J2704

== ENCOUNTER 2018-04-16 20:05 | Emergency (ER) | payer OTHER, BC ==
[2018-04-16] MEDS ORDERED: Prochlorperazine 10 MG/2 ML SDV IM ONE (20:20)
[2018-04-16] MEDS ORDERED: Sodium Chloride 0.9% 2.5 ML Syringe FLUSH PRN (20:20)
[2018-04-16] MEDS ORDERED: Sodium Chloride 0.9% 1,000 ML IV ONE (20:20)
[2018-04-16] MEDS ORDERED: Sodium Chloride 0.9% 10 ML Syringe FLUSH PRN (20:20)
[2018-04-16] MEDS ORDERED: diphenhydrAMINE 50 MG/ML SDV IVPUSH ONE (20:20)
[2018-04-16] MEDS ORDERED: Ketorolac 30 MG/ML SDV IVPUSH ONE (20:20)
[2018-04-16] MEDS ORDERED: LORazepam 2 MG/ML SDV IVPUSH ONE (20:21)
--- NOTE | 2018-04-16 20:25 | EDM.PDOC ---
ED HPI GENERAL MEDICAL PROBLEM - General Chief Complaint: Headache Stated Complaint: PT HAS MIGRAINE Time Seen by Provider: 04/16/18 20:22 Source of Information: Reports: Patient History Limitations: Reports: No Limitations - History of Present Illness INITIAL COMMENTS - FREE TEXT/NARRATIVE: HISTORY AND PHYSICAL: []28-year-old female presenting with migraine headache History of Present Illness: []Patient has history of migraines and has Imitrex, has not had any relief Migraine started about noon today, she has nausea but not vomited Review of Systems: As per history of present illness and below otherwise all systems reviewed and negative. Past medical history: As per history of present illness and as reviewed below otherwise noncontributory. Surgical history: As per history of present illness and as reviewed below otherwise noncontributory. Social history: No reported history of drug or alcohol abuse. Family history: As per history of present illness and as reviewed below otherwise noncontributory. Physical exam: Alert female answering questions appropriately in full sentences no shortness of breath noted she is photophobic and has the room darkened HEENT: Atraumatic, normocehpalic, pupils reactive, negative for conjunctival pallor or scleral icterus, mucous membranes moist, throat clear, neck supple, nontender, trachea midline. The PERRLA. no nystigmus. Lungs: Clear to auscultation, breath sounds equal bilaterally, chest non tender. Heart: S1S2, regular, negative for clicks, rubs, or JVD. Abdomen: Soft, nondistended, nontender. Negative for masses or hepatossplenmegaly. Negative for costovertebral tenderness. Pelvis: Stable nontender. Genitourinary: Deferred. Rectal: Deferred Extremities: Atraumatic, negative for cords or calf pain. Neurovascular unremarkable. Neuro: Awake, alert, oriented. Cranial nerves II through XII unremarkable. Cerebellum unremarkable. Motor and sensory unremarkable throughout. Exam nonfocal. Diagnostics: [] Therapeutics: []1 L IV fluid Compazine IM Benadryl IV Toradol IV Ativan IV Impression: []Migraine headache Plan: [] Discharge home Follow up with your primary care provider in 3-4 days For all made to Dr. Ophelia Farias local neurologist [facility] - Neu[facility] Professional Building [address] [place] [address], [address] [place] [address] Definitive disposition and diagnosis as appropriate pending reevaluation and review of above. Onset: Today, Sudden Quality: Reports: Ache Severity: Moderate Improves with: Reports: None Worsens with: Reports: None Associated Symptoms: Reports: No Other Symptoms Headache Pain Score (Numeric/FACES): 10 - Related Data Allergies Allergy/AdvReac Type Severity Reaction Status Date / Time amoxicillin Allergy Anaphylactic Verified 04/16/18 20:20 Shock Dairy Products Allergy Anaphylactic Verified 04/16/18 20:20 Shock morphine Allergy Anaphylactic Verified 04/16/18 20:20 Shock Sulfa (Sulfonamide Allergy Anaphylactic Verified 04/16/18 20:20 Antibiotics) Shock Home Meds: Home Meds DULoxetine HCl [Duloxetine HCl] 90 mg PO DAILY 05/09/17 [History] Sertraline [Zoloft] 50 mg PO DAILY 05/09/17 [History] Albuterol [IJD: Albuterol HFA] 1 - 2 puff INH ASDIRECTED PRN 09/08/17 [History] Ranitidine HCl [Zantac] 1 tab PO DAILY 09/08/17 [History] SUMAtriptan [Imitrex] 1 tab PO ASDIRECTED PRN 09/08/17 [History] Hydrocodone/Acetaminophen [Ola 10-325 Tablet] 1 - 2 tab PO Q4H PRN #80 tablet 09/13/17 [Rx] Ketorolac Tromethamine 1 tab PO Q6H PRN #20 tablet 09/13/17 [Rx] Past Medical History - Past Health History Medical/Surgical History: Denies Medical/Surgical History Other HEENT History: wears glasses/contacts Cardiovascular History: Reports: None Other Cardiovascular History: states "was in the ER 2 days ago (09/05/17) with a heart attack" "they did a workup and I was cleared" Respiratory History: Reports: Asthma Gastrointestinal History: Reports: Other (See Below) Other Gastrointestinal History: ulcers Genitourinary History: Reports: None GLASS CUTTER HELPER History: Reports: None Musculoskeletal History: Reports: Other (See Below) Other Musculoskeletal History: L knee meniscus tear. R knee bone & tissue deterioration Neurological History: Reports: None Psychiatric History: Reports: Depression Endocrine/Metabolic History: Reports: None Hematologic History: Reports: None Immunologic History: Reports: None Oncologic (Cancer) History: Reports: None Dermatologic History: Reports: None - Infectious Disease History Infectious Disease History: Reports: None - Past Surgical History Musculoskeletal Surgical History: Reports: Other (See Below) Other Musculoskeletal Surgeries/Procedures:: R knee surgery. L hand surger Social & Family History - Family History Family Medical History: Noncontributory ED ROS GENERAL - Review of Systems Review Of Systems: ROS reveals no pertinent complaints other than HPI. - Physical Exam Exam: See Below (see dictation) Course - Vital Signs Last Recorded V/S: Last Vital Signs Temp 36.8 C 04/16/18 20:23 Pulse 63 04/16/18 20:23 Resp 18 04/16/18 20:23 BP 123/85 04/16/18 20:23 Pulse Ox 96 04/16/18 20:23 - Orders/Labs/Meds Orders: Active Orders 24 hr Category Date Time Status Sodium Chloride 0.9% [Normal Saline] 1,000 ml Med 04/16/18 20:20 Active IV STAT Sodium Chloride 0.9% [Saline Flush] Med 04/16/18 20:20 Active 10 ml FLUSH ASDIRECTED PRN Sodium Chloride 0.9% [Saline Flush] Med 04/16/18 20:20 Active 2.5 ml FLUSH ASDIRECTED PRN Saline Lock Insert [OM.PC] Stat Oth 04/16/18 20:20 Ordered Medication Orders Sodium Chloride (Normal Saline) 1,000 mls @ 999 mls/hr IV STAT ONE Stop: 04/16/18 21:20 Last Admin: 04/16/18 20:37 Dose: 999 mls/hr Sodium Chloride (Saline Flush) 10 ml FLUSH ASDIRECTED PRN PRN Reason: Keep Vein Open Last Admin: 04/16/18 20:43 Dose: 10 ml Sodium Chloride (Saline Flush) 2.5 ml FLUSH ASDIRECTED PRN PRN Reason: Keep Vein Open Last Admin: 04/16/18 20:43 Dose: 2.5 ml Meds: Medications Generic Name Dose Route Start Last Admin Trade Name Freq PRN Reason Stop Dose Admin Sodium Chloride 1,000 mls @ 999 mls/hr 04/16/18 20:20 04/16/18 20:37 Normal Saline IV 04/16/18 21:20 999 mls/hr STAT ONE Administration Sodium Chloride 10 ml 04/16/18 20:20 04/16/18 20:43 Saline Flush FLUSH 10 ml ASDIRECTED PRN Administration Keep Vein Open Sodium Chloride 2.5 ml 04/16/18 20:20 04/16/18 20:43 Saline Flush FLUSH 2.5 ml ASDIRECTED PRN Administration Keep Vein Open Discontinued Medications Generic Name Dose Route Start Last Admin Trade Name Gage PRN Reason Stop Dose Admin Diphenhydramine HCl 25 mg 04/16/18 20:20 04/16/18 20:41 Benadryl IVPUSH 04/16/18 20:21 25 mg ONETIME ONE Administration Ketorolac Tromethamine 30 mg 04/16/18 20:20 04/16/18 20:40 Toradol IVPUSH 04/16/18 20:21 30 mg ONETIME ONE Administration Lorazepam 1 mg 04/16/18 20:21 04/16/18 20:39 Ativan IVPUSH 04/16/18 20:22 1 mg ONETIME ONE Administration Prochlorperazine Edisylate 10 mg 04/16/18 20:20 04/16/18 20:38 Compazine IM 04/16/18 20:21 10 mg ONETIME ONE Administration Departure - Departure Time of Disposition: 20:54 Disposition: Home, Self-Care 01 Condition: Good Clinical Impression: Migraine - Discharge Information Instructions: Recurrent Migraine Headache, [id number] Referrals: PCP,None [Primary Care Provider] - Forms: ED Department Discharge Additional Instructions: The following information is given to patients seen in the emergency department who are being discharged to home. This information is to outline your options for follow-up care. We provide all patients seen in our emergency department with a follow-up referral. The need for follow-up, as well as the timing and circumstances, are variable depending upon the specifics of your emergency department visit. If you don't have a primary care physician on staff, we will provide you with a referral. We always advise you to contact your personal physician following an emergency department visit to inform them of the circumstance of the visit and for follow-up with them and/or the need for any referrals to a consulting specialist. The emergency department will also refer you to a specialist when appropriate. This referral assures that you have the opportunity for followup care with a specialist. All of these measure are taken in an effort to provide you with optimal care, which includes your followup. Under all circumstances we always encourage you to contact your private physician who remains a resource for coordinating your care. When calling for followup care, please make the office aware that this follow-up is from your recent emergency room visit. If for any reason you are refused follow-up, please contact the [facility] emergency department at and asked to speak to the emergency department charge nurse. Discharge home Follow up with your primary care provider in 3-4 days For all made to Dr. Ophelia Farias local neurologist [facility] - Neurology Professional [address], [address] [place] [address] - My Orders Last 24 Hours: My Active Orders 04/16/18 20:20 Sodium Chloride 0.9% [Normal Saline] 1,000 ml IV STAT Sodium Chloride 0.9% [Saline Flush] 10 ml FLUSH ASDIRECTED PRN Sodium Chloride 0.9% [Saline Flush] 2.5 ml FLUSH ASDIRECTED PRN Saline Lock Insert [OM.PC] Stat - Assessment/Plan Last 24 Hours: My Active Orders 04/16/18 20:20 Sodium Chloride 0.9% [Normal Saline] 1,000 ml IV STAT Sodium Chloride 0.9% [Saline Flush] 10 ml FLUSH ASDIRECTED PRN Sodium Chloride 0.9% [Saline Flush] 2.5 ml FLUSH ASDIRECTED PRN Saline Lock Insert [OM.PC] Stat
== END 2018-04-16 21:30 | disposition home or self-care (01) ==
LOC: MW.ED 20:05
DX: G43.909 Migraine, unspecified, not intractable, without status migrainosus (principal); Z88.1 Allergy status to other antibiotic agents; Z88.8 Allergy status to other drugs, medicaments and biological substances; Z88.2 Allergy status to sulfonamides; Z79.899 Other long term (current) drug therapy
CPT/HCPCS: 96361; 96372; 96374; 96375; 99283; J0780; J1200; J1885; J2060; J7040